=== PATIENT | female | born 1975 | race Two or more races ===

== ENCOUNTER 2016-11-13 03:10 | Emergency (ER) | payer SELFPAY ==
[~2016-11-13] VITALS: Ht 154.9 cm; Wt 77.1 kg
[2016-11-13 03:23] VITALS: BP 148/113
[2016-11-13] MEDS ORDERED: HYDROCODONE/APAP 5/325MG 1 EACH TABLET ONE (03:42)
[2016-11-13] MEDS ORDERED: HYDROCODONE/APAP 5/325MG 1 EACH TABLET PO ONE (04:00)
== END 2016-11-13 04:19 | disposition home or self-care (01) ==
LOC: ER 03:10
DX: M54.40 Lumbago with sciatica, unspecified side (principal); M51.36 Other intervertebral disc degeneration, lumbar region; E11.9 Type 2 diabetes mellitus without complications; N83.209 Unspecified ovarian cyst, unspecified side; G89.29 Other chronic pain; F17.200 Nicotine dependence, unspecified, uncomplicated; Z88.0 Allergy status to penicillin; Z88.1 Allergy status to other antibiotic agents; Z88.6 Allergy status to analgesic agent; Z91.040 Latex allergy status; V49.40XA Driver injured in collision with unspecified motor vehicles in traffic accident, initial encounter; Y93.89 Activity, other specified; Y92.413 State road as the place of occurrence of the external cause; Y99.8 Other external cause status
CPT/HCPCS: 72110; 99284; A4606; Z7610

== ENCOUNTER 2017-02-10 10:06 | Emergency (ER) | payer MEDICAID ==
[~2017-02-10] VITALS: Ht 157.5 cm; Wt 76.7 kg
[2017-02-10 10:11] VITALS: BP 126/82
[2017-02-10] MEDS ORDERED: HYDROCODONE/APAP 5/325MG 1 EACH TABLET ONE (10:18)
[2017-02-10] MEDS ORDERED: HYDROCODONE/APAP 5/325MG 1 EACH TABLET PO ONE (10:30)
== END 2017-02-10 11:39 | disposition home or self-care (01) ==
LOC: ER 10:07
DX: S63.502A Unspecified sprain of left wrist, initial encounter (principal); E11.9 Type 2 diabetes mellitus without complications; N83.209 Unspecified ovarian cyst, unspecified side; I10 Essential (primary) hypertension; G89.29 Other chronic pain; M54.40 Lumbago with sciatica, unspecified side; F17.200 Nicotine dependence, unspecified, uncomplicated; Z88.0 Allergy status to penicillin; Z88.1 Allergy status to other antibiotic agents; Z91.040 Latex allergy status; Z88.5 Allergy status to narcotic agent; W18.39XA Other fall on same level, initial encounter; Y93.89 Activity, other specified; Y92.89 Other specified places as the place of occurrence of the external cause; Y99.0 Civilian activity done for income or pay
CPT/HCPCS: 73110; A4606; Z7610

== ENCOUNTER 2017-07-23 17:58 | Emergency (ER) | payer OTHER ==
[~2017-07-23] VITALS: Ht 154.9 cm; Wt 79.4 kg
--- NOTE | 2017-07-23 18:35 | NUR ---
called to room in, patient in restroom per admitting
--- NOTE | 2017-07-23 19:10 | NUR ---
ASSUMED CARE. PT C/O RUQ ABDOMINAL PAIN, 06/07, SINCE LAST NIGHT. PT AAPX4 NO ACUTE DISTRESS NOTED, RESP EVEN AND UNLABORED. PT WAS SEEN AND EVALUATED BY ER MD WITH ORDERS RECEIVED. WILL CARRY OUT ORDERS.
--- NOTE | 2017-07-23 19:15 | NUR ---
IVAN ALONSO AT BEDSIDE.
[2017-07-23 19:18] LABS: BASOPHILS # (AUTO) 0.1 /CMM (0.0-0.2); BASOPHILS % (AUTO) 0.7 % (0.0-2.0); EOSINOPHILS # (AUTO) 0.1 /CMM (0.0-0.7); EOSINOPHILS % (AUTO) 0.6 % (0.0-6.0); HEMATOCRIT 43 % (33-45); HEMOGLOBIN 14.4 g/dL (11.5-14.8); LYMPHOCYTES # (AUTO) 5.3 /CMM (0.8-4.8); LYMPHOCYTES % (AUTO) 42.3 % (20.0-44.0); MEAN CORPUSCULAR HEMOGLOBIN 33 PG (26.0-33.0); MEAN CORPUSCULAR HGB CONC 34 g/dl (31.0-36.0); MEAN CORPUSCULAR VOLUME 97 fL (82-100); MONOCYTES # (AUTO) 0.9 /CMM (0.1-1.30); MONOCYTES % (AUTO) 7.5 % (2.0-12.0); NEUTROPHILS # (AUTO) 6.1 /CMM (1.8-8.9); NEUTROPHILS % (AUTO) 48.9 % (43.0-81.0); PLATELET COUNT (AUTO) 481 /CMM (150-450); RDW COEFFICIENT OF VARIATION 12.4 (11.5-15.0); RED BLOOD CELL COUNT(AUTO) 4.43 MIL/uL (4.0-5.2); WHITE BLOOD COUNT (AUTO) 12.5 K/uL (4.3-11.0)
--- NOTE | 2017-07-23 19:22 | NUR ---
PT MEDICATED BY RN PER ER MD ORDER.
[2017-07-23 19:36] LABS: ALBUMIN 3.6 g/dL (3.4-5.0); BILIRUBIN,DIRECT 0.1 mg/dL (0.0-0.2); BILIRUBIN,TOTAL 0.3 mg/dL (0.2-1.0); CALCIUM, SERUM 9.3 mg/dL (8.5-10.1); CREATININE 0.9 mg/dL (0.6-1.3); TOTAL PROTEIN, SERUM 8.4 g/dL (6.4-8.2)
[2017-07-23 20:32] LABS: APPEARANCE,URINE Clear (CLEAR); BILIRUBIN,URINE Negative (NEGATIVE); BLOOD, URINE Negative Ery/uL (NEGATIVE); COLOR,URINE Yellow (YELLOW); KETONES,URINE Negative (NEGATIVE); LEUKOCYTE ESTERASE ,URINE Negative (NEGATIVE); NITRITE, URINE Negative (NEGATIVE); PROTEIN,URINE 30 mg/dl (NEGATIVE); UGLUCOSE 500 MG/DL mg/dL (NEGATIVE); UROBILINOGEN,URINE 0.2 EU/dL (0.2)
[2017-07-23 20:33] LABS: PREGNANCY TEST URINE QUAL NEGATIVE (NEGATIVE)
[2017-07-23 20:55] LABS: BACTERIA,URINE Few /HPF (None Seen); CLINITEST,URINE 1%; SQUAMOUS EPITHELIAL CELL,UR Few /HPF (None Seen)
--- NOTE | 2017-07-23 21:28 | NUR ---
IV removed. Catheter intact and site benign. Pressure and 4x4 applied to site. No bleeding noted.ambulatory with a steady gait. Patient discharged to home in stable condition. Written and verbal after care instructions given. Patient verbalizes understanding of instruction.
[2017-07-23 21:29] VITALS: BP 148/92
== END 2017-07-23 21:31 | disposition home or self-care (01) ==
LOC: ER 17:59
DX: R10.11 Right upper quadrant pain (principal); E11.65 Type 2 diabetes mellitus with hyperglycemia; G89.29 Other chronic pain; I10 Essential (primary) hypertension; F17.200 Nicotine dependence, unspecified, uncomplicated; K76.0 Fatty (change of) liver, not elsewhere classified; M54.30 Sciatica, unspecified side; Z88.0 Allergy status to penicillin; Z88.1 Allergy status to other antibiotic agents; Z88.8 Allergy status to other drugs, medicaments and biological substances; Z91.040 Latex allergy status
CPT/HCPCS: 36415; 71010-TC; 76705-TC; 80048-TC; 80076-TC; 81000-TC; 84703-TC; 85025-TC; A4606; J2270; J2405; J7030; Z7610

== ENCOUNTER 2018-01-26 02:01 | Emergency (ER) | payer OTHER ==
[~2018-01-26] VITALS: Ht 165.1 cm; Wt 72.1 kg
--- NOTE | 2018-01-26 02:53 | NUR ---
PT AMBULATORY TO ER BED 12. PT BIB FAMILY C/O RUQ PAIN WITH N/V X 2 HOURS. 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 VSS/RESP EVEN UNLABORED/NAD NOTED/SKIN WARM AND DRY/AFEBRILE/AOX4. AWAITING MD QUIROGA.
--- NOTE | 2018-01-26 03:00 | NUR ---
AT BEDSIDE FOR EVAL.
[2018-01-26] MEDS ORDERED: MORPHINE SULFATE INJ 4 MG/ML DISP.SYRIN ONE (03:11)
[2018-01-26] MEDS ORDERED: ONDANSETRON HCL/PF 4 MG/2 ML VIAL ONE ×2 (03:11→04:31)
--- NOTE | 2018-01-26 03:11 | NUR ---
CALLED FOR /S GALLBLADDER
--- NOTE | 2018-01-26 03:20 | NUR ---
20G IV X 1 ATTEMPT TO R AC USING ASEPTIC TECH, BLOOD HANDED OVER TO THE LAB AT THE BEDSIDE. IV FLUSHES EASILY WITH NS, NO S/S INFILTRATION.
--- NOTE | 2018-01-26 03:29 | NUR ---
URINE SPECIMEN OBTAINED AND SENT TO THE LAB.
[2018-01-26] MEDS ORDERED: MORPHINE SULFATE INJ 2 MG/ML DISP.SYRIN IV ONE (03:30)
[2018-01-26] MEDS ORDERED: ONDANSETRON HCL/PF 4 MG/2 ML VIAL IVP ONE (03:30)
[2018-01-26] MEDS ORDERED: IV NS 0.9% 1,000 ML BAG IV ONE (03:30)
[2018-01-26 03:37] LABS: BASOPHILS # (AUTO) 0.1 /CMM (0.0-0.2); BASOPHILS % (AUTO) 0.5 % (0.0-2.0); EOSINOPHILS % (AUTO) 0.7 % (0.0-6.0); HEMATOCRIT 40 % (33-45); HEMOGLOBIN 13.8 g/dL (11.5-14.8); LYMPHOCYTES # (AUTO) 3.9 /CMM (0.8-4.8); LYMPHOCYTES % (AUTO) 32.7 % (20.0-44.0); MEAN CORPUSCULAR HGB CONC 35 g/dl (31.0-36.0); MEAN CORPUSCULAR VOLUME 97 fL (82-100); MONOCYTES # (AUTO) 0.9 /CMM (0.1-1.30); MONOCYTES % (AUTO) 7.8 % (2.0-12.0); NEUTROPHILS % (AUTO) 58.3 % (43.0-81.0); PLATELET COUNT (AUTO) 427 /CMM (150-450); RDW COEFFICIENT OF VARIATION 13.1 (11.5-15.0); RED BLOOD CELL COUNT(AUTO) 4.08 MIL/uL (4.0-5.2)
[2018-01-26 03:39] LABS: APPEARANCE,URINE CLEAR (CLEAR); BILIRUBIN,URINE NEGATIVE (NEGATIVE); BLOOD, URINE NEGATIVE Ery/uL (NEGATIVE); COLOR,URINE YELLOW (YELLOW); KETONES,URINE NEGATIVE (NEGATIVE); LEUKOCYTE ESTERASE ,URINE NEGATIVE (NEGATIVE); NITRITE, URINE NEGATIVE (NEGATIVE); PROTEIN,URINE NEGATIVE (NEGATIVE); UGLUCOSE 3+ mg/dL (NEGATIVE); UROBILINOGEN,URINE 0.2 EU/dL (0.2)
[2018-01-26 03:48] LABS: BACTERIA,URINE None seen /HPF (None Seen); RBC,URINE 0-2 /HPF (0-2); SQUAMOUS EPITHELIAL CELL,UR Few /HPF (None Seen); WBC,URINE 0-2 /HPF (0-3)
[2018-01-26 03:51] LABS: INR 1.03 (0.87-1.13)
[2018-01-26 03:54] LABS: ALANINE AMINOTRANSFERASE 52 U/L (12-78); ALBUMIN 3.9 g/dL (3.4-5.0); ALKALINE PHOSPHATASE 52 U/L (46-116); ASPARTATE AMINOTRANSFERASE 19 U/L (15-37); BILIRUBIN,DIRECT 0.1 mg/dL (0.0-0.2); BILIRUBIN,TOTAL 0.5 mg/dL (0.2-1.0); CALCIUM, SERUM 9.9 mg/dL (8.5-10.1); CARBON DIOXIDE 26 mmol/L (21-32); CHLORIDE 98 mmol/L (98-107); CREATININE 0.8 mg/dL (0.6-1.3); LIPASE 323 U/L (73-393); POTASSIUM 4.2 mmol/L (3.5-5.1); SODIUM SERUM 135 mmol/L (136-145); TOTAL PROTEIN, SERUM 8.5 g/dL (6.4-8.2); UREA NITROGEN, BLOOD 12 mg/dL (7-18)
[2018-01-26 03:56] LABS: GLUCOSE 363 mg/dL (74-106); TROPONIN I < 0.017 ng/mL (0.00-0.056)
--- NOTE | 2018-01-26 04:05 | NUR ---
ULTRASOUND AT BEDSIDE.
[2018-01-26] MEDS ORDERED: ONDANSETRON HCL/PF 4 MG/2 ML VIAL IV ONE (04:30)
--- NOTE | 2018-01-26 05:15 | NUR ---
MD AT BEDSIDE SPEAKING WITH THE PATIENT.
--- NOTE | 2018-01-26 05:42 | NUR ---
IV removed. Catheter intact and site benign. Pressure and 4x4 applied to site. No bleeding noted. Patient discharged with family to home in stable condition. Written and verbal after care instructions given, patient instructed not to drive. Patient verbalizes understanding of instruction.
[2018-01-26 05:43] VITALS: BP 145/89
== END 2018-01-26 05:43 | disposition home or self-care (01) ==
LOC: ER 02:05
DX: E11.65 Type 2 diabetes mellitus with hyperglycemia (principal); R10.11 Right upper quadrant pain; I10 Essential (primary) hypertension; G89.29 Other chronic pain; N83.209 Unspecified ovarian cyst, unspecified side; F17.200 Nicotine dependence, unspecified, uncomplicated; Z88.0 Allergy status to penicillin; Z88.1 Allergy status to other antibiotic agents; Z88.6 Allergy status to analgesic agent; Z91.040 Latex allergy status
CPT/HCPCS: 36415; 76705-TC; 80048-TC; 80076-TC; 81000-TC; 82962-TC; 83690-TC; 84484-TC; 85025-TC; 85730-TC; A4606; J2270; J2405; J7030; Z7610

== ENCOUNTER 2018-03-25 16:56 | Emergency (ER) | payer OTHER ==
[~2018-03-25] VITALS: Ht 154.9 cm; Wt 75.7 kg
--- NOTE | 2018-03-25 17:15 | NUR ---
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 HAS HX RECENT INTRACRANIAL HEMORRHAGE. PATIENT IS HYPERTENSIVE. A/OX 4, BREATHING EVEN AND UNLABORED. NO SOB, NO DISTRESS, NO NEURO DEFICITS. SAFETY AND COMFORT MEASURES IN PLACE. MD AT BEDSIDE FOR EVAL.
[2018-03-25 17:41] LABS: BASOPHILS # (AUTO) 0.1 /CMM (0.0-0.2); BASOPHILS % (AUTO) 0.7 % (0.0-2.0); EOSINOPHILS % (AUTO) 0.7 % (0.0-6.0); HEMATOCRIT 42 % (33-45); HEMOGLOBIN 14.5 g/dL (11.5-14.8); LYMPHOCYTES # (AUTO) 3.2 /CMM (0.8-4.8); LYMPHOCYTES % (AUTO) 31.3 % (20.0-44.0); MEAN CORPUSCULAR HGB CONC 35 g/dl (31.0-36.0); MEAN CORPUSCULAR VOLUME 95 fL (82-100); MONOCYTES # (AUTO) 0.4 /CMM (0.1-1.30); MONOCYTES % (AUTO) 4.3 % (2.0-12.0); NEUTROPHILS # (AUTO) 6.3 /CMM (1.8-8.9); PLATELET COUNT (AUTO) 518 /CMM (150-450); RDW COEFFICIENT OF VARIATION 12.1 (11.5-15.0); RED BLOOD CELL COUNT(AUTO) 4.42 MIL/uL (4.0-5.2); WHITE BLOOD COUNT (AUTO) 10.1 K/uL (4.3-11.0)
[2018-03-25] MEDS ORDERED: ONDANSETRON HCL/PF 4 MG/2 ML VIAL ONE (17:44)
[2018-03-25] MEDS ORDERED: MORPHINE SULFATE INJ 4 MG/ML DISP.SYRIN ONE (17:45)
[2018-03-25] MEDS ORDERED: LABETALOL HCL IV 100MG VIAL ONE (17:45)
--- NOTE | 2018-03-25 17:45 | NUR ---
NEW IV STARTED ON LAC, 20G. BLOOD DRAWN AND SENT TO LAB.
--- NOTE | 2018-03-25 17:55 | NUR ---
PATIENT TAKEN TO CT VIA WHEELCHAIR.
[2018-03-25 17:56] LABS: CALCIUM, SERUM 9.3 mg/dL (8.5-10.1); CREATININE 0.7 mg/dL (0.6-1.3); POTASSIUM 3.7 mmol/L (3.5-5.1)
[2018-03-25 18:00] LABS: INR 1.05 (0.85-1.15)
[2018-03-25] MEDS ORDERED: MORPHINE SULFATE INJ 2 MG/ML DISP.SYRIN IV ONE (18:00)
[2018-03-25] MEDS ORDERED: ONDANSETRON HCL/PF - ER 4 MG/2 ML VIAL IV ONE (18:00)
[2018-03-25] MEDS ORDERED: LABETALOL HCL IV 100MG VIAL IV ONE (18:00)
[2018-03-25] MEDS: IV NS 0.9% 1,000 ML BAG IV ONE ×2 (18:05→18:15)
--- NOTE | 2018-03-25 18:10 | NUR ---
PATIENT RETURNED FROM CT IN STABLE CONDITION.
[2018-03-25 18:59] VITALS: BP 138/94
--- NOTE | 2018-03-25 19:02 | NUR ---
IV removed. Catheter intact and site benign. Pressure and 4x4 applied to site. No bleeding noted. Patient discharged to home in stable condition. Written and verbal after care instructions given. Patient verbalizes understanding of instruction.
== END 2018-03-25 19:00 | disposition home or self-care (01) ==
LOC: ER 17:03
DX: R51 Headache (principal); H53.149 Visual discomfort, unspecified; I10 Essential (primary) hypertension; E11.9 Type 2 diabetes mellitus without complications; N83.209 Unspecified ovarian cyst, unspecified side; F17.200 Nicotine dependence, unspecified, uncomplicated; G89.29 Other chronic pain; Z88.0 Allergy status to penicillin; Z88.1 Allergy status to other antibiotic agents; Z88.6 Allergy status to analgesic agent; Z91.040 Latex allergy status
CPT/HCPCS: 36415; 70450-TC; 80048-TC; 85025-TC; 85730-TC; A4606; J2270; J2405; J3490; J7030; Z7610

== ENCOUNTER 2018-06-26 20:03 | Emergency (ER) | payer OTHER ==
[~2018-06-26] VITALS: Ht 165.1 cm; Wt 81.6 kg
[2018-06-26 21:15] VITALS: BP 151/110
== END 2018-06-26 22:34 | disposition home or self-care (01) ==
LOC: ER 20:05
DX: S90.32XA Contusion of left foot, initial encounter (principal); E11.9 Type 2 diabetes mellitus without complications; G89.29 Other chronic pain; Z88.0 Allergy status to penicillin; Z88.1 Allergy status to other antibiotic agents; Z88.8 Allergy status to other drugs, medicaments and biological substances; Z91.040 Latex allergy status; F17.200 Nicotine dependence, unspecified, uncomplicated; I10 Essential (primary) hypertension; W20.8XXA Other cause of strike by thrown, projected or falling object, initial encounter; Y93.89 Activity, other specified; Y92.89 Other specified places as the place of occurrence of the external cause; Y99.8 Other external cause status
CPT/HCPCS: 73610; 73630; 99284; A4606; Z7610

== ENCOUNTER 2019-10-23 17:03 | Emergency (ER) | payer OTHER ==
[~2019-10-23] VITALS: Ht 154.9 cm; Wt 78.0 kg
--- NOTE | 2019-10-23 17:40 | NUR ---
C/O PAIN FROM HER LEFT KNEE DOWN TO HER LEFT FOOT, S/P GLF AT HOME 1 HR AGO.PATIENT AXOX4.NO SOB NO DISTRESS NOTED.L FOOT PAIN AND EXCORIATION.PATIENT FELL AT HOME WHILE CLAEANING HOUSE .
[2019-10-23] MEDS ORDERED: HYDROCODONE/APAP 10/325MG 1 EA TABLET PO ONE (18:30)
[2019-10-23] MEDS ORDERED: HYDROCODONE/APAP 10/325MG 1 EA TABLET ONE (18:32)
--- NOTE | 2019-10-23 19:15 | NUR ---
STACIA ROLAND AT [facility].GOT NEW ORDER VERONIKA BUNDY.
--- NOTE | 2019-10-23 19:22 | NUR ---
ENDORSED TO PM NURSE FOR SALLY.
[2019-10-23 19:30] VITALS: BP 157/92
--- NOTE | 2019-10-23 19:31 | NUR ---
Patient discharged to home in stable condition. Written and verbal after care instructions given. Patient verbalizes understanding of instruction AND RX. PT AMBULATED OUT WITH A CAM WALKER BOOT. PT WAS INSTRUCTED NOT TO DRIVE WHILE TAKING [place]. VSS. PT'S IS DRIVING PT HOME.
== END 2019-10-23 19:30 | disposition home or self-care (01) ==
LOC: ER 18:21
DX: S93.692A Other sprain of left foot, initial encounter (principal); S80.02XA Contusion of left knee, initial encounter; E11.65 Type 2 diabetes mellitus with hyperglycemia; I10 Essential (primary) hypertension; G89.29 Other chronic pain; F17.200 Nicotine dependence, unspecified, uncomplicated; Z86.73 Personal history of transient ischemic attack (TIA), and cerebral infarction without residual deficits; Z88.0 Allergy status to penicillin; Z88.1 Allergy status to other antibiotic agents; Z88.6 Allergy status to analgesic agent; Z91.040 Latex allergy status; W18.39XA Other fall on same level, initial encounter; Y93.89 Activity, other specified; Y92.89 Other specified places as the place of occurrence of the external cause; Y99.8 Other external cause status
CPT/HCPCS: 73564-TC; 73630-TC; 82962-TC

== ENCOUNTER 2020-07-30 11:42 | Emergency (ER) | payer OTHER | END 2020-07-30 13:01 | disposition home or self-care (01) | DX: S83.8X2A Sprain of other specified parts of left knee, initial encounter (principal); I10 Essential (primary) hypertension; E11.9 Type 2 diabetes mellitus without complications; G89.29 Other chronic pain; M54.5 Low back pain; Z88.0 Allergy status to penicillin; Z88.6 Allergy status to analgesic agent; Z91.040 Latex allergy status; Z86.73 Personal history of transient ischemic attack (TIA), and cerebral infarction without residual deficits; W18.39XA Other fall on same level, initial encounter; Y93.39 Activity, other involving climbing, rappelling and jumping off; Y92.89 Other specified places as the place of occurrence of the external cause; Y99.8 Other external cause status ==

== ENCOUNTER 2022-12-31 13:50 | Emergency (ER) | payer SELFPAY ==
[~2022-12-31] VITALS: Ht 154.9 cm; Wt 76.7 kg
[2022-12-31 14:09] VITALS: BP 180/110
--- NOTE | 2022-12-31 14:38 | NUR ---
C/O LEFT WRIST PAIN / S/P TRIP AND FALL. CMS INTACT. PT AMBULATED TO BED AND CONNECTED TO MONITOR. BREATHING EVEN AND UNLABORED. AWAITING MD ORDERS.
[2022-12-31] MEDS ORDERED: HYDROCODONE/APAP 5/325MG TABLET PO ONE (15:00)
[2022-12-31] MEDS ORDERED: HYDROCODONE/APAP 5/325MG TABLET ONE (15:02)
[2022-12-31] MEDS ORDERED: HYDR-3976 PO (15:56)
--- NOTE | 2022-12-31 16:32 | NUR ---
Patient discharged to home in stable condition. Written and verbal after care instructions given. Patient verbalizes understanding of instruction.
== END 2022-12-31 16:33 | disposition home or self-care (01) ==
LOC: ER 14:00
DX: S63.502A Unspecified sprain of left wrist, initial encounter (principal); I10 Essential (primary) hypertension; E11.9 Type 2 diabetes mellitus without complications; G89.29 Other chronic pain; F17.200 Nicotine dependence, unspecified, uncomplicated; Z88.0 Allergy status to penicillin; Z88.8 Allergy status to other drugs, medicaments and biological substances; X58.XXXA Exposure to other specified factors, initial encounter; Y93.61 Activity, american tackle football; Y92.89 Other specified places as the place of occurrence of the external cause; Y99.8 Other external cause status
CPT/HCPCS: 73110; 73130-TC

== ENCOUNTER 2023-07-16 22:29 | Emergency (ER) | payer MEDICAID ==
[~2023-07-16] VITALS: Ht 154.9 cm; Wt 74.4 kg
[~2023-07-16 22:29] MED LIST: HYDR-3976 PO
[2023-07-16 23:41] VITALS: TEMP 98.1
[2023-07-17] MEDS ORDERED: HYDROCODONE/APAP 5/325MG TABLET ONE (00:25)
[2023-07-17] MEDS ORDERED: LIDOCAINE 5% (PATCH) 1 EA PATCH TP ONE (00:25)
[2023-07-17] MEDS ORDERED: CYCLOBENZAPRINE 10 MG TABLET ONE (00:26)
[2023-07-17] MEDS ORDERED: CYCLOBENZAPRINE 10 MG TABLET PO ONE (00:30)
[2023-07-17] MEDS ORDERED: LIDOCAINE 5% (PATCH) 1 EA PATCH TP SCH (00:30)
[2023-07-17] MEDS ORDERED: HYDROCODONE/APAP 5/325MG TABLET PO ONE (00:30)
[2023-07-17 01:12] LABS: BASOPHILS # (AUTO) 0.1 K/uL (0.0-0.2); BASOPHILS % (AUTO) 0.8 % (0.0-2.0); EOSINOPHILS # (AUTO) 0.3 K/uL (0.0-0.7); EOSINOPHILS % (AUTO) 2.5 % (0.0-6.0); HEMATOCRIT 36 % (33-45); HEMOGLOBIN 11.9 g/dL (11.5-14.8); LYMPHOCYTES # (AUTO) 3.9 K/uL (0.8-4.8); LYMPHOCYTES % (AUTO) 35.2 % (20.0-44.0); MEAN CORPUSCULAR HEMOGLOBIN 32 PG (26.0-33.0); MEAN CORPUSCULAR HGB CONC 33 g/dl (31.0-36.0); MEAN CORPUSCULAR VOLUME 98 fL (82-100); NEUTROPHILS # (AUTO) 5.8 K/uL (1.8-8.9); NEUTROPHILS % (AUTO) 52.5 % (43.0-81.0); PLATELET COUNT (AUTO) 332 K/uL (150-450); RED BLOOD CELL COUNT(AUTO) 3.72 MIL/uL (4.0-5.2); WHITE BLOOD COUNT (AUTO) 11.1 K/uL (4.3-11.0)
[2023-07-17 01:21] LABS: APPEARANCE,URINE CLOUDY (CLEAR); BILIRUBIN,URINE NEGATIVE (NEGATIVE); BLOOD, URINE NEGATIVE Ery/uL (NEGATIVE); COLOR,URINE YELLOW (YELLOW); KETONES,URINE NEGATIVE (NEGATIVE); LEUKOCYTE ESTERASE ,URINE 1+ (NEGATIVE); NITRITE, URINE NEGATIVE (NEGATIVE); PH,URINE 6.5 (5.0-8.0); PREGNANCY TEST URINE QUAL NEGATIVE (NEGATIVE); PROTEIN,URINE NEGATIVE (NEGATIVE); UGLUCOSE 3+ mg/dL (NEGATIVE); UROBILINOGEN,URINE 0.2 EU/dL (0.2)
[2023-07-17 01:25] LABS: ADD URINE CULTURE YES; BACTERIA,URINE Rare /HPF (None Seen); RBC,URINE 0-2 /HPF (0-2); SQUAMOUS EPITHELIAL CELL,UR Rare /HPF (None Seen)
[2023-07-17 01:25] LABS: CALCIUM, SERUM 9.1 mg/dL (8.5-10.1); CREATININE 0.8 mg/dL (0.6-1.3); POTASSIUM 4.1 mmol/L (3.5-5.1)
[2023-07-17 01:38] LABS: ALBUMIN 3.2 g/dL (3.4-5.0); BILIRUBIN,DIRECT 0.1 mg/dL (0.0-0.2); BILIRUBIN,TOTAL 0.2 mg/dL (0.2-1.0); TOTAL PROTEIN, SERUM 7.5 g/dL (6.4-8.2)
[2023-07-17] MEDS ORDERED: MORPHINE SULFATE INJ 4 MG/ML DISP.SYRIN ONE (02:24)
[2023-07-17] MEDS ORDERED: CEFTRIAXONE 1 G VIAL ONE (02:24)
[2023-07-17] MEDS ORDERED: CEFTRIAXONE 1GM BAG (ER ONLY) 1 GM/50 ML PIGGYBACK IV ONE (02:30)
[2023-07-17] MEDS ORDERED: MORPHINE SULFATE INJ 2 MG/ML DISP.SYRIN IV ONE (02:30)
[2023-07-17] MEDS ORDERED: IV NS 0.9% 1,000 ML IV ONE (02:30)
[2023-07-17 03:43] VITALS: BP 127/95; O2SAT 98
[2023-07-17] MEDS ORDERED: LEVO750T46 PO (03:44)
[2023-07-17] MEDS ORDERED: CYCL10TA9 PO (03:44)
== END 2023-07-17 03:58 | disposition home or self-care (01) ==
LOC: ER 22:34
DX: R00.2 Palpitations (principal); M54.9 Dorsalgia, unspecified; I10 Essential (primary) hypertension; E11.9 Type 2 diabetes mellitus without complications; G89.29 Other chronic pain; F17.200 Nicotine dependence, unspecified, uncomplicated; Z88.0 Allergy status to penicillin; Z88.8 Allergy status to other drugs, medicaments and biological substances
CPT/HCPCS: 99284; 96365; 96375; 85025; 80048; 87086; 83690; 80076; 84703; 81001; 36415; J2270; J0696; J7060; J7030